=== PATIENT | female | born 2000 | race Caucasian/White ===

== ENCOUNTER → 2023-01-30 11:00 | Outpatient (BNVA) | payer OTHER, BC, SELFPAY | PROVIDERS: Visit Provider Nurse Practitioner Women's Health | DX: N92.6 Irregular menstruation, unspecified (principal) | CPT/HCPCS: 82306; 83036; 84146; 84402; 84439; 84443; 84481; 84702 ==

== ENCOUNTER → 2023-02-07 08:50 | Outpatient (BNVA) | payer OTHER, BC, SELFPAY | PROVIDERS: Visit Provider Nurse Practitioner Women's Health | DX: N92.6 Irregular menstruation, unspecified (principal) | CPT/HCPCS: 84144 ==

== ENCOUNTER → 2023-02-14 08:01 | Outpatient (BNVA) | payer OTHER, SELFPAY | PROVIDERS: Visit Provider Nurse Practitioner Women's Health | DX: N92.6 Irregular menstruation, unspecified (principal) | CPT/HCPCS: 76830 ==

== ENCOUNTER → 2023-05-24 09:19 | Outpatient (BNVA) | payer OTHER, SELFPAY | PROVIDERS: Visit Provider Nurse Practitioner Women's Health | DX: N92.6 Irregular menstruation, unspecified (principal) | CPT/HCPCS: 84702 ==

== ENCOUNTER → 2023-06-25 08:18 | Outpatient (BNVA) | payer OTHER, SELFPAY | PROVIDERS: Visit Provider Nurse Practitioner Women's Health | DX: E28.2 Polycystic ovarian syndrome (principal) | CPT/HCPCS: 84144 ==

== ENCOUNTER → 2023-07-18 08:21 | Outpatient (BNVA) | payer OTHER, SELFPAY | PROVIDERS: Visit Provider Nurse Practitioner Women's Health | DX: E28.2 Polycystic ovarian syndrome (principal) | CPT/HCPCS: 84144 ==

== ENCOUNTER → 2023-08-03 11:00 | Outpatient (BNVA) | payer OTHER, SELFPAY | PROVIDERS: Visit Provider Nurse Practitioner Women's Health | DX: E28.2 Polycystic ovarian syndrome (principal); N92.6 Irregular menstruation, unspecified | CPT/HCPCS: 84702 ==

== ENCOUNTER → 2023-08-07 10:30 | Outpatient (BNVA) | payer OTHER, SELFPAY | PROVIDERS: Visit Provider Nurse Practitioner Women's Health | DX: N92.6 Irregular menstruation, unspecified (principal) | CPT/HCPCS: 84702 ==

== ENCOUNTER → 2023-08-20 12:27 | Outpatient (BNVA) | payer OTHER, SELFPAY | PROVIDERS: Visit Provider Nurse Practitioner Women's Health | DX: Z36.87 Encounter for antenatal screening for uncertain dates (principal) | CPT/HCPCS: 76817 ==

== ENCOUNTER 2023-09-06 09:25 | Emergency (ER) | payer OTHER, BC, MEDICAID, SELFPAY ==
--- NOTE | 2023-09-06 09:36 | W.ED.GENADLT ---
HPI - General Adult General: Chief complaint: Vaginal Bleeding Stated complaint: vag bleeding 9 weeks preg Time Seen by Provider: 09/06/23 09:31 Source: patient Mode of arrival: ambulatory Limitations: no limitations History of Present Illness: 22-year-old female who is currently 9 weeks states she had some spotting today. States she had some lower abdominal cramping as well. She denies any heavy bleeding or severe pain she had no problems with this it is her first . Denies any discharge or vomiting Associated symptoms: Deny chest pain, dyspnea, headache(s), nausea, rash or vomiting Review of Systems Const: Denies: fever(s), chills, body aches or change in appetite ENMT: Denies: throat pain or dental pain Card: Denies: chest pain Resp: Denies: dyspnea GI: Reports: abdominal pain; Denies: nausea, vomiting or diarrhea : Reports: vaginal bleeding Musc: Denies: neck pain or back pain Skin/Breast: Denies: rash Neuro: Denies: headache(s) PFSH ED PFSH: Medical History No pertinent past medical history neghx: htn,dm,thyroid,dvt/pe PCP: does not have one Surgical History Hx of tonsillectomy Family History Father Colon cancer Mother Hypertension Grandmother Diabetes Denies family history of Ovarian cancer Heart disease Hyperlipidemia Breast cancer Uterine cancer Thyroid disease Stroke Physical Exam Const: COMMON NORMALS: no acute distress, patient oriented x3 and healthy appearing HENMT: COMMON NORMALS: normocephalic and atraumatic HEAD & SCALP: normocephalic and atraumatic Neck/C-Spine: COMMON NORMALS: full ROM and supple Chest: COMMONS NORMALS: normal inspection of the chest Resp: COMMON NORMALS: normal respiratory effort Cardio: COMMON NORMALS: regular rate, regular rhythm and No murmurs present (Cardio) RATE: regular rate RHYTHM: regular rhythm GI: COMMON NORMALS: Normal to inspection, nondistended, normoactive bowel sounds present, Soft to palpation, non-tender and no masses PALPATION: Yes Soft to palpation Extremity: COMMON NORMALS: normal to inspection and full ROM Neuro: COMMON NORMALS: patient oriented x3, moves all extremities and no focal motor deficits Psych: COMMON NORMALS: mental status grossly normal, Normal thought process present and cooperative THOUGHT PROCESS: Normal thought process present Skin: COMMON NORMALS: no rashes or lesions noted and no wounds GENERAL SKIN EXAM: no rashes or lesions noted MDM - General Adult Medical Decision Making Patient presents here for threatened miscarriage I did a bedside ultrasound did show an IUP heart rate of 150s she is well-appearing here she is stable for discharge she is follow-up with OB return if worsening she understands agrees to plan Medical Records I reviewed the patient's medical records. Lab Data I reviewed the patient's lab results. 09/06/23 09:38 Laboratory Results WBC 8.91 10^3/uL (3.29-11.43) 09/06/23 09:38 RBC 4.68 10^6/uL (3.85-5.65) 09/06/23 09:38 Hgb 14.20 g/dL (11.27-16.99) 09/06/23 09:38 Hct 40.7 % (36-47) 09/06/23 09:38 MCV 87.0 fl (85-98) 09/06/23 09:38 MCH 30.3 pg (27-33) 09/06/23 09:38 MCHC 34.9 g/dL (30-55) 09/06/23 09:38 RDW 11.9 % (12.1-15.1) L 09/06/23 09:38 Plt Count 274 10^3/cmm (157-399) 09/06/23 09:38 MPV 9.5 fL (7.4-10.4) 09/06/23 09:38 Neut % (Auto) 72.7 % 09/06/23 09:38 Lymph % (Auto) 18.5 % 09/06/23 09:38 [place] % (Auto) 7.4 % 09/06/23 09:38 Eos % (Auto) 0.8 % 09/06/23 09:38 Baso % (Auto) 0.3 % 09/06/23 09:38 Neut # (Auto) 6.47 10^3/uL (1.8-7.7) 09/06/23 09:38 Lymph # (Auto) 1.7 10^3/uL (0.8-4.8) 09/06/23 09:38 [place] # (Auto) 0.7 10^3/uL (0.2-0.9) 09/06/23 09:38 Eos # (Auto) 0.1 10^3/uL (0.0-0.8) 09/06/23 09:38 Baso # (Auto) 0.0 10^3/uL (0.0-0.1) 09/06/23 09:38 Nucleated RBC % (auto) 0 % 09/06/23 09:38 Nucleated RBCs # 0.0 /100WBC 09/06/23 09:38 Ser , Semi-Qnt 799738.00 mIU/mL 09/06/23 09:38 Blood Type O Positive 09/06/23 09:38 Rho(D) Type Rh positive 09/06/23 09:38 Antibody Screen Negative 09/06/23 09:38 No radiology studies performed this visit Discharge Plan Discharge Patient Disposition: Home Clinical Impression: Threatened miscarriage Condition: Stable Prescriptions: No Action No Known Home Medications Discharge Orders: Discharge ED (Routine); Ordered 09/06/23 Ordered By: Leslie Landaverde Discharge Diet: Advance as tolerated Discharge Activity: Resume usual activity Patient Instructions: Threatened Miscarriage (ED) Coding Level of Care Code ED [employer] for Katelyn Arenas
[2023-09-06 09:56] LABS: Basophils % 0.3 %; Eosinophils # 0.1 10^3/uL (0.0-0.8); Eosinophils % 0.8 %; Hematocrit 40.7 % (36-47); Lymphocytes # 1.7 10^3/uL (0.8-4.8); Lymphocytes % 18.5 %; Mean Corpuscular HGB Conc 34.9 g/dL (30-55); Mean Corpuscular Hemoglobin 30.3 pg (27-33); Mean Platelet Volume 9.5 fL (7.4-10.4); Monocytes # 0.7 10^3/uL (0.2-0.9); Monocytes % 7.4 %; Neutrophils # 6.47 10^3/uL (1.8-7.7); Neutrophils % 72.7 %; Nucleated Red Blood Cells % 0 %; Platelet Count 274 10^3/cmm (157-399); Red Blood Count 4.68 10^6/uL (3.85-5.65); Red Cell Distribution Width 11.9 % (12.1-15.1); White Blood Count 8.91 10^3/uL (3.29-11.43)
[2023-09-06 10:57] VITALS: BP 104/65; PULSE 85; O2SAT 100
== END 2023-09-06 10:58 | disposition home or self-care (01) ==
PROVIDERS: Emergency Provider Emergency Medicine
DX: O20.0 Threatened abortion (principal); Z3A.09 9 weeks gestation of pregnancy
CPT/HCPCS: 84315; 84702; 85025; 86850; 86900; 87086; 99283

== ENCOUNTER → 2023-09-10 15:00 | Outpatient (BNVA) | payer OTHER, BC, MEDICAID, SELFPAY | PROVIDERS: Visit Provider Nurse Practitioner Women's Health | DX: O20.0 Threatened abortion (principal); Z3A.00 Weeks of gestation of pregnancy not specified | CPT/HCPCS: 84702 ==

== ENCOUNTER → 2023-09-20 07:45 | Outpatient (BNVA) | payer OTHER, BC, MEDICAID, SELFPAY | PROVIDERS: Visit Provider Nurse Practitioner Women's Health | DX: Z34.90 Encounter for supervision of normal pregnancy, unspecified, unspecified trimester (principal) | CPT/HCPCS: 80307; 81000; 84443; 85025; 86592; 86762; 86803; 87086; 87340; 87491; 87591; 87806 ==

== ENCOUNTER → 2023-09-25 14:27 | Outpatient (BNVA) | payer OTHER, BC, MEDICAID, SELFPAY | PROVIDERS: Visit Provider Nurse Practitioner Women's Health | DX: Z34.90 Encounter for supervision of normal pregnancy, unspecified, unspecified trimester (principal) | CPT/HCPCS: 76801 ==

== ENCOUNTER → 2023-10-19 07:49 | Outpatient (BNVA) | payer OTHER, BC, MEDICAID, SELFPAY | PROVIDERS: Visit Provider Obstetrics & Gynecology | DX: Z34.80 Encounter for supervision of other normal pregnancy, unspecified trimester (principal) | CPT/HCPCS: 84315; 87491; 87591; 88175 ==

== ENCOUNTER → 2023-10-31 08:45 | Outpatient (BNVA) | payer OTHER, BC, MEDICAID, SELFPAY | PROVIDERS: Visit Provider Nurse Practitioner Women's Health | DX: Z34.90 Encounter for supervision of normal pregnancy, unspecified, unspecified trimester (principal) | CPT/HCPCS: 82105; 83036; 87340 ==

== ENCOUNTER → 2023-11-16 15:41 | Outpatient (BNVA) | payer OTHER, BC, MEDICAID, SELFPAY | PROVIDERS: Visit Provider Nurse Practitioner Women's Health | DX: R30.0 Dysuria (principal) | CPT/HCPCS: 81000; 87086 ==

== ENCOUNTER → 2023-11-27 09:23 | Outpatient (BNVA) | payer OTHER, BC, MEDICAID, SELFPAY | PROVIDERS: Visit Provider Obstetrics & Gynecology | DX: Z34.92 Encounter for supervision of normal pregnancy, unspecified, second trimester (principal) | CPT/HCPCS: 76805 ==

== ENCOUNTER → 2023-12-25 08:01 | Outpatient (BNVA) | payer BC, MEDICAID, SELFPAY | PROVIDERS: Visit Provider Obstetrics & Gynecology | DX: Z36.2 Encounter for other antenatal screening follow-up (principal); Z3A.25 25 weeks gestation of pregnancy | CPT/HCPCS: 76816; 82950; 84315 ==

== ENCOUNTER 2023-12-29 04:20 | Outpatient (CLI) | payer BC, MEDICAID, SELFPAY ==
[2023-12-29 04:25] VITALS: BMI 21.4
[2023-12-29 05:48] VITALS: BP 129/77; PULSE 77
[2023-12-29 06:44] VITALS: BP 125/80; PULSE 98
== END 2023-12-29 06:50 | disposition home or self-care (01) ==
LOC: OPOB 04:24 → OBGYN 04:41
PROVIDERS: Visit Provider Obstetrics & Gynecology
DX: O26.899 Other specified pregnancy related conditions, unspecified trimester (principal); Z3A.00 Weeks of gestation of pregnancy not specified; R10.9 Unspecified abdominal pain
CPT/HCPCS: 99211

== ENCOUNTER → 2024-02-11 07:54 | Outpatient (BNVA) | payer BC, MEDICAID, SELFPAY | PROVIDERS: Visit Provider Obstetrics & Gynecology | DX: Z36.4 Encounter for antenatal screening for fetal growth retardation (principal); Z3A.33 33 weeks gestation of pregnancy | CPT/HCPCS: 76816 ==

== ENCOUNTER → 2024-03-04 08:03 | Outpatient (BNVA) | payer BC, MEDICAID, SELFPAY | PROVIDERS: Visit Provider Nurse Practitioner Women's Health | DX: Z34.80 Encounter for supervision of other normal pregnancy, unspecified trimester (principal) | CPT/HCPCS: 84315; 85025 ==

== ENCOUNTER 2024-03-11 19:40 | Observation (INO) | payer BC, MEDICAID, SELFPAY ==
[2024-03-11] VITALS (67 sets, daily range): BP systolic 85–121; BP diastolic 48–85; PULSE 71–101; O2SAT 98–100; BMI 22.8
[2024-03-11] MEDS: terbutaline 1 mg/mL INJ 0.25 MG SUBCUT ×2 (14:45→16:16)
[2024-03-11] MEDS: NIFEdipine 10 mg Capsule 30 MG PO (14:47)
[2024-03-11] MEDS: lactated ringers 1,000 ML 999 ML IV (14:52)
[2024-03-11 14:53] LABS: Bilirubin Urine Negative (Negative); Blood Urine Negative (Negative); Glucose Urine UA Negative (Normal); Ketones Urine Negative (Negative); Leukocyte Esterase Urine Trace (Negative); Nitrate Urine Negative (Negative); Protein Urine Negative (Negative); Specific Gravity, Urine 1.006 (1.005-1.030); Urine Appearance Clear (CLEAR); Urine Color Yellow (Yellow); Urobilinogen Urine 0.2 mg/dL (Negative); pH Urine 7.5 (5-7)
[2024-03-11 14:58] LABS: Bacteria Urine None Seen /hpf; RBC Urine 0-2 /hpf (0-2); Squamous Epithelial Cell Urine 0-5 /hpf (0-5); WBC Urine 0-5 /hpf (0-5)
--- NOTE | 2024-03-11 15:23 | P.TNLD_ITS ---
OB L&D Triage Visit Information: Date of evaluation: 03/11/24 Comments/Additional reason(s) for visit: 23-year-old female at 35 weeks ges tation with [facility] 04/11/2024, patient seen on triage labor and delivery floor with complaints of uterine contractions through the weekend with increase intensity and frequency this morning. Patient denies leakage of fluid or vaginal bleeding. She admits to good movement. Patient receives care with Dr. Romo and reports no complications to date. Upon arrival to labor and delivery patient was placed on external monitoring and uterine contractions noted every 4 to 5 minutes. Treatment?IV fluid bolus with terbutaline 0.25 mg subcu and Procardia 30 mg p.o. Patient's contractions spaced out and resolved. Evaluation: Baseline heart rate: 140 Variability: Moderate (11-25) monitor accelerations: Present 15x15 monitor decelerations: None Cervical dilation (cm): 1 Cervical effacement (%): 80 station: -3 Laboratory results: Laboratory Tests 03/11/24 14:15 Urine Color Yellow Urine Appearance Clear Urine pH 7.5 Ur Specific Gravit y 1.006 Urine Protein Negative Urine Glucose (UA) Negative Urine Ketones Negative Urine Blood Negative Urine Nitrate Negative Urine Bilirubin Negative Urine Urobilinogen 0.2 Ur Leukocyte Savita ase Trace A Urine RBC 0-2 Urine WBC 0-5 Ur Squamous Epith Cells 0-5 Amorphous Sediment Not Reportable Urine Bacteria None seen Hyaline Casts 0.40 Vital signs: Vital Signs - 24 hr 03/11/24 13:35 03/11/24 13:55 03/11/24 14:06 Pulse Rate 93 71 77 Blood Pressure 109/69 107/58 103/59 03/11/24 14:19 03/11/24 14:19 03/11/24 15:05 Pulse Rate 78 Blood Pressure 101/59 111/85 03/11/24 15:05 03/11/24 15:20 03/11/24 15:20 Pulse Rate 86 93 Blood Pressure 110/62 Care [facility] Calculator Estimated Delivery Date Method Current WG Current Estimate 04/11/24 Ultrasound #1 35w 4d Specific Issues/Plans * PCOS * ALLERGY--- Unknown source; has mild anaphylaxis response Final Diagnosis Final Diagnosis (1) 35 weeks gestation of : Plan: 1. External monitoring 2. IV fluid hydration 3. Uterine toco lysis with terbutaline and Procardia 4. Discharge to home, patient to follow-up with Dr. Romo in the office as scheduled. Patient is advised to return to labor and delivery if contractions return, spontaneous rupture of fluid or vaginal bleeding. Status: Acute Code(s): Z3A.35 - 35 weeks gestation of (2) uterine contractions in third trimester, antepartum: Status: Acute Code(s): O47.03 - False labor before 37 completed weeks of gestation, third trimester Coding Level of Care Code Acute Code for Chg Fwd Diagnoses 35 weeks gestation of Z3A.35 uterine contractions in third trimester, antepartum O47.03
[2024-03-11] MEDS: NIFEdipine ER (24 hr) 30 mg Tablet PO (17:49)
[2024-03-11] MEDS: dextrose 5%-lactated ringers 1,000 ML 75 ML IV (19:43)
[2024-03-11] MEDS: magnesium sulfate premix 4 GM/100 ML PREMIX IV (19:43)
[2024-03-11] MEDS: magnesium sulfate premix 20 GM/500 ML BAG IV (20:06)
[2024-03-11] MEDS: ampicillin 2,000 MG in sodium chloride 0.9% (plus) 50 ML 100 MG IV (22:06)
[2024-03-11] MEDS: betamethasone susp 6 mg/mL 1 mL (per mL) 12 MG IM (22:36)
[2024-03-12 00:02] VITALS: BP 100/53; PULSE 84
[2024-03-12 00:20] VITALS: BP 112/67; PULSE 95; RESP 18; TEMP 36.6
[2024-03-12 00:37] VITALS: BP 112/67; PULSE 95; RESP 18; TEMP 36.6; O2SAT 95
== END 2024-03-12 00:30 | disposition other institution (70) ==
LOC: OPOB 19:41 → OBGYN 20:55
PROVIDERS: Obstetrics & Gynecology; Admitting Provider Obstetrics & Gynecology; Visit Provider Obstetrics & Gynecology
DX: O47.03 False labor before 37 completed weeks of gestation, third trimester (principal); Z3A.35 35 weeks gestation of pregnancy
CPT/HCPCS: 51702; 59025; 81001; 96372; 99211; G0378; J0290; J0702; J3105; J3475; J7120; J7121

== ENCOUNTER → 2024-03-18 07:57 | Outpatient (BNVA) | payer BC, MEDICAID, SELFPAY | PROVIDERS: Visit Provider Nurse Practitioner Women's Health | DX: O47.03 False labor before 37 completed weeks of gestation, third trimester (principal) | CPT/HCPCS: 84315; 87081 ==